=== PATIENT | female | born 1930 | race Caucasian/White ===

== ENCOUNTER 2016-11-30 12:55 | Emergency (ER) | payer MEDICARE, BC ==
[~2016-11-30] VITALS: Ht 152.4 cm; Wt 69.7 kg
[2016-11-30] MEDS ORDERED: AMLO5TAB2 PO (13:15)
[2016-11-30] MEDS ORDERED: DIOV40TA PO (13:15)
[2016-11-30] MEDS ORDERED: DEXA1TA PO (13:17)
[2016-11-30] MEDS ORDERED: FENT12PA TOP (13:17)
[2016-11-30] MEDS ORDERED: LEVO75TA4 PO (13:17)
[2016-11-30 13:59] LABS: MEAN CORPUSCULAR HEMOGLOBIN 29.4 pg (27.0-33.0); MEAN CORPUSCULAR HGB CONC 32.8 g/dl (32.0-36.5); MEAN CORPUSCULAR VOLUME 89.8 fl (80.0-96.0); RED CELL DISTRIBUTION WIDTH 15.9 % (11.5-14.5); WHITE BLOOD COUNT 14.4 K/mm3 (4.0-10.0)
[2016-11-30] MEDS ORDERED: ACETAMINOPHEN TAB 650MG DOSE (2X325MG) PO ONE (14:00)
[2016-11-30 14:14] LABS: ANION GAP 4 MEQ/L (8-16); BLOOD UREA NITROGEN 28 MG/DL (7-18); CALCIUM LEVEL 9.3 MG/DL (8.8-10.2); CARBON DIOXIDE LEVEL 26 MEQ/L (21-32); CHLORIDE LEVEL 101 MEQ/L (98-107); CREATININE FOR GFR 0.88 MG/DL (0.55-1.02); GLOMERULAR FILTRATION RATE > 60.0 (>32); GLUCOSE, FASTING 118 MG/DL (83-110); POTASSIUM SERUM 5.1 MEQ/L (3.5-5.1); SODIUM LEVEL 131 MEQ/L (136-145)
--- NOTE | 2016-11-30 15:22 | REP ---
CT BRAIN WITHOUT CONTRAST: 11/30/2016. CLINICAL HISTORY: Confusion. History of brain metastatic disease. COMPARISON: There are no prior studies available. FINDINGS: Soft-tissue and bone windows for each slice level are reviewed. The left parietal craniotomy site with flap in place. Ventricles are midline, lateral ventricle is symmetric, mildly dilated proportionate to the mild to moderate diffuse cerebral atrophy. That atrophy is greater on the right than left lobe. There is diffuse scattered hypodensities throughout the white matter tracts and periventricular deep and subcortical regions of the brain. However, there is more appearance of hypodensity in the white matter of the temporoparietal lobe on the left subjacent to the craniotomy site. This has the appearance of cytotoxic edema. A mass could certainly be suspected in the brain. I do not have surgical history, prior studies or any history of radiation therapy available at this time. I do not see any intra or extra-axial hemorrhage. Some effacement of sulci in the temporal parietal lobe on that left side where there is more extensive cytotoxic edema. No midline shift. Third and fourth ventricles intact. Brainstem grossly unremarkable. Cerebellum shows atrophy without mass. There are no posterior fossa hemorrhage. Basal cisterns intact. The sinuses and mastoids are unremarkable. IMPRESSION: 1. Status post left parietal craniotomy with a zone of cytotoxic edema in the temporoparietal lobes on that left side. This could certainly be related to underlying mass or small masses from metastatic disease. 2. Diffuse atrophy with proportionate ventricular size. Chronic white matter changes are present throughout the hemispheres. No intracranial hemorrhage, midline shift or other discrete significant finding. 3. Depending on clinical factors contrast MRI, or if not a candidate for that, contrast CT may be helpful to define brain lesions. Signed by Noel Kruse MD 11/30/2016 08:11 P
[2016-11-30 15:41] VITALS: BP 150/69
[2016-11-30] MEDS ORDERED: BACT800T5 PO (15:42)
== END 2016-11-30 15:58 | disposition home or self-care (01) ==
LOC: M ED 14:44
DX: R41.82 Altered mental status, unspecified (principal); N39.0 Urinary tract infection, site not specified; R93.0 Abnormal findings on diagnostic imaging of skull and head, not elsewhere classified; I10 Essential (primary) hypertension; E03.9 Hypothyroidism, unspecified; Z79.899 Other long term (current) drug therapy; Z88.3 Allergy status to other anti-infective agents; C34.90 Malignant neoplasm of unspecified part of unspecified bronchus or lung; Z85.841 Personal history of malignant neoplasm of brain